=== PATIENT | female | born 1945 | race Caucasian/White ===

== ENCOUNTER → 2023-07-03 07:09 | Outpatient (REF) | payer MEDICARE, OTHER, SELFPAY | LOC: HWRCS 07:09 | PROVIDERS: ATTENDING PHYSICIAN Internal Medicine Cardiovascular Disease; FAMILY PHYSICIAN Internal Medicine | DX: Z01.810 Encounter for preprocedural cardiovascular examination (principal); I70.0 Atherosclerosis of aorta; R07.89 Other chest pain; R06.09 Other forms of dyspnea; R01.1 Cardiac murmur, unspecified | CPT/HCPCS: 78452; 93017; 93306; A9500; J2785 ==

== ENCOUNTER → 2023-08-01 09:11 | Outpatient (REF) | payer MEDICARE, OTHER, SELFPAY | LOC: RAD 09:11 | PROVIDERS: ATTENDING PHYSICIAN Surgery Vascular Surgery; FAMILY PHYSICIAN Family Medicine | DX: I72.4 Aneurysm of artery of lower extremity (principal) | CPT/HCPCS: 93922; 93925 ==

== ENCOUNTER 2023-11-06 07:35 | Inpatient (IN) | payer MEDICARE, OTHER, SELFPAY ==
--- NOTE | 2023-10-03 07:52 | CM ---
Patient is scheduled for an elective L TKR on 11/06/23. Spoke with patient prior to surgery via telephone. Introduced role of Orthopedic Navigator. Patient reports that she lives alone in a one story apartment at [facility]. There are no steps to
enter. She currently functions independently and uses a quad cane. She also has a rolling walker, shower seat and raised toilet seat. She has never had VN services. PCP is Dr. Ana Cristina Chaidez.
Discussed orthopedic program and post surgical plans. Reviewed anticipated length of stay and that goal is for her to return home at discharge. Also reviewed outpatient PT. Patient is in agreement with tentative plan but will need VN services. She
will have support from her son and daughter in law when she goes home.
Patient will complete online education.
Plan: Orthopedic Navigator will remain available to assist with the care of patient and will reassess discharge needs after surgery.
[2023-10-16 08:57] VITALS: BMI 38.6
[2023-10-16 10:14] LABS: Hematocrit 36.4 % (37.0-47.0); Mean Corpuscular Hgb 30.2 pg (27.0-31.0); Mean Corpuscular Volume 91.7 fL (81.0-99.0); Mean Platelet Volume 10.9 fL (7.4-10.4); Platelet Count 175 10^3/uL (130-400); Red Blood Cell Count 3.97 10^6/uL (4.20-5.40); Red Cell Dist. Width 12.4 % (11.5-14.5); White Blood Cell Count 6.5 10^3/uL (4.8-10.8)
[2023-10-16 11:52] LABS: Glycohemoglobin (HgbA1c) 6.8 % (4.0-5.6)
[2023-10-16 12:30] LABS: ALT (SGPT) 13 U/L (0-35); AST (SGOT) 19 U/L (14-36); Albumin 3.9 g/dl (3.5-5.0); Alkaline Phosphatase 52 U/L (38-126); Blood Urea Nitrogen 14 mg/dl (7-17); Calcium 9.4 mg/dl (8.4-10.2); Carbon Dioxide 26 mmol/L (22-30); Chloride 104 mmol/L (98-107); Estimated Creatinine Clearance 103 ml/min; Glucose 141 mg/dl (70-99); Potassium 4.4 mmol/L (3.5-5.1); Sodium 137 mmol/L (135-145); Total Bilirubin 0.7 mg/dl (0.2-1.3); Total Protein 6.3 g/dl (6.3-8.2); eGFR > 60.00
[2023-10-16 15:58] VITALS: BMI 38.6
[2023-11-06] VITALS (21 sets, daily range): BP systolic 97–163; BP diastolic 41–90; PULSE 58; O2SAT 99; BMI 38.6
[2023-11-06] MEDS: CELEBREX 200 MG PO (08:58)
[2023-11-06] MEDS: TYLENOL 650 MG PO ×4 (08:59→23:57)
[2023-11-06] MEDS: NORMOSOL-R 1000 IV ×2 (08:59→15:17)
[2023-11-06 09:15] LABS: Glucose - Point of Care 143 mg/dl (70-99)
[2023-11-06 12:09] LABS: Glucose - Point of Care 136 mg/dl (70-99)
[2023-11-06] MEDS: ROXICODONE 5 MG PO ×2 (14:03→18:27)
--- NOTE | 2023-11-06 15:24 | W.PN.UPDATE ---
Update Note
Progress Note Update
L knee OA s/p L TKA w/ Dr Nevarez 11/06/23
DVT prophylaxis - ASA, b/l venous foot pumps
HTN - + parameters - monitor BP
Abnormal EKG; nuclear stress test 06/2023 stable - monitor on tele
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
LINDA, compliant with dental appliance - monitor O2
- IS
- Can use dental appliance if brought in for admission
Non-insulin dependent diabetes, A1c 6.8 - monitor BS
- Resume Metformin
- +SSI
- Would benefit from Cefadroxil upon d/c
Chemo-induced neuropathy - consider Gabapentin or Lyrica
Dyslipidemia with statin intolerance
Aortic atherosclerosis
Mild mitral regurgitation
Moderate aortic stenosis
Mild to moderate aortic regurgitation
Carotid bruits secondary to radiation of aortic murmur
Colon polyps
Fatty liver disease
Vertigo
Lumbar stenosis
Hypothyroidism
Left breast cancer, remote, status post left radical mastectomy with lymph node dissection, chemotherapy, and radiation
Resultant left upper extremity lymphedema due to previous breast surgery with history of recurrent cellulitis; on Cephalexin as needed
Muscle spasms
Osteopenia.
Obesity, BMI 38.6
Remote history of tobacco abuse
[2023-11-06] MEDS: NOVOLOG FLEXPEN-MODERATE RESISTANCE SC (15:47)
--- NOTE | 2023-11-06 16:25 | PTCARENOTE ---
pt admitted to 2S room 2118 at 1545. pt oriented tor room, call mcqueen, bed controls and plan of care with verbalized understanding. telemetry placed and reading SR/SB in 60's. Left knee w/surgical dressing intact w/ small amount of drainage noted.
+ neurovascular checks, Good sensation, movement and DP pulse noted. foot pumps in use. family at bedside. will observe.
[2023-11-06] MEDS: TYLENOL PO (16:40)
[2023-11-06] MEDS: COZAAR 100 MG PO (16:43)
[2023-11-06] MEDS: GLUCOPHAGE 500 MG PO (16:44)
[2023-11-06] MEDS: SYNTHROID PO (16:44)
[2023-11-06 16:47] LABS: Glucose - Point of Care 210 mg/dl (70-99)
[2023-11-06] MEDS: NOVOLOG FLEXPEN-MODERATE RESISTANCE 3 UNITS SC (16:47)
[2023-11-06] MEDS: ASPIRIN 325 MG PO (18:20)
[2023-11-06] MEDS: ANCEF 5 IV (18:20)
[2023-11-06] MEDS: BACTROBAN 2% OINTMENT 1 APPLIC NASAL (20:06)
[2023-11-06] MEDS: SENOKOT 17.1999999999999993 MG PO (20:07)
[2023-11-06] MEDS: TORADOL 10 MG IV (20:07)
[2023-11-06] MEDS: COLACE 100 MG PO (20:07)
[2023-11-06] MEDS: FLUSH (NSS) 2 FLUSH IV (20:13)
[2023-11-06] MEDS: DILAUDID 0.5 MG IV (20:25)
[2023-11-06 21:30] LABS: Glucose - Point of Care 210 mg/dl (70-99)
[2023-11-07] MEDS: FLUSH (NSS) 2 FLUSH IV (02:56)
[2023-11-07] MEDS: ANCEF 5 IV (02:56)
[2023-11-07 03:25] VITALS: BP 113/56
[2023-11-07] MEDS: TYLENOL PO (05:16)
[2023-11-07] MEDS: SYNTHROID 100 MCG PO (05:51)
[2023-11-07 07:19] LABS: Glucose - Point of Care 206 mg/dl (70-99)
[2023-11-07 07:25] VITALS: BP 136/60
[2023-11-07] MEDS: CELEBREX 200 MG PO (08:28)
[2023-11-07] MEDS: ROXICODONE 5 MG PO (08:28)
[2023-11-07] MEDS: TYLENOL 650 MG PO ×2 (08:29→12:51)
[2023-11-07] MEDS: SENOKOT 17.1999999999999993 MG PO (08:29)
[2023-11-07] MEDS: GLUCOPHAGE 500 MG PO (08:29)
[2023-11-07] MEDS: COZAAR PO (08:29)
[2023-11-07] MEDS: NOVOLOG FLEXPEN-MODERATE RESISTANCE 3 UNITS SC (08:30)
[2023-11-07] MEDS: NOVOLOG FLEXPEN 2 UNITS SC (08:30)
[2023-11-07] MEDS: COLACE 100 MG PO (08:30)
[2023-11-07] MEDS: ASPIRIN 325 MG PO (08:30)
[2023-11-07] MEDS: BACTROBAN 2% OINTMENT 1 APPLIC NASAL (08:34)
--- NOTE | 2023-11-07 09:01 | CM ---
Addendum entered by Alannah Ramsey 11/07/23 12:17:
Patient did well in therapy. She and her son have no concerns about discharge plans.
Original Note:
Reviewed chart and held rounds with PT, OT and nursing. Patient admitted as planned for elective L TKR. Met with patient at bedside. Confirmed information previously obtained for assessment. Also discussed discharge plans. The plan is for patient to
return home at discharge. Her son will be staying with her until 11/16. Reviewed VN services including start of care (tentatively 11/07), services to be ordered (PT, OT, SN, JOURNEYMAN ELECTRICIAN) and frequency/duration of services. Options list provided and PAC data
reviewed. Patient selects VN.
Patient has all needed DME at home.
VN referral was completed and sent to [facility] through [employer] with request for start of care on 11/07. Confirmation received of their ability to accept case. health unit clerk to fax discharge instructions to VN when complete.
Patient will use [facility] pharmacy for discharge prescriptions.
Discharge plans were reviewed with patient's son on 11/06.
[2023-11-07 09:30] VITALS: BP 122/51; PULSE 62; O2SAT 95
[2023-11-07 11:15] VITALS: BP 146/67
[2023-11-07 11:37] LABS: Glucose - Point of Care 209 mg/dl (70-99)
[2023-11-07] MEDS: NOVOLOG FLEXPEN-MODERATE RESISTANCE SC (12:50)
[2023-11-07] MEDS: NOVOLOG FLEXPEN SC (12:50)
--- NOTE | 2023-11-07 13:14 | W.PN.ORTHO ---
Today's Communication / Plan
-
D/c today since clinically stable, did well w/ PT and OT.
Assessment
.
Distal Motor Intact: Yes
Dressing:
Clean, dry and intact.
Assessment:
L knee OA s/p L TKA w/ Dr Nevarez 11/06/23
DVT prophylaxis - ASA, b/l venous foot pumps
HTN - + parameters - BPs stable
Abnormal EKG; nuclear stress test 06/2023 stable - maintaining NSR/asymptomatic sinus rakesh during admission
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
LINDA, compliant with dental appliance - O2 stable on RA
- IS
- Continue dental appliance HS
Non-insulin dependent diabetes, A1c 6.8 - BS readings elevated post-surgery d/t surgical stress, IV steroids, holding of AM diabetic meds DOS
- BS readings expected to improve further, however, w/ resumption of home meds, continuation of diabetic carb controlled diet
- Resumed Metformin
- +SSI during admission
- Would benefit from Cefadroxil upon d/c
Chemo-induced neuropathy - consider Gabapentin or Lyrica
Dyslipidemia with statin intolerance
Aortic atherosclerosis
Mild mitral regurgitation
Moderate aortic stenosis
Mild to moderate aortic regurgitation
Carotid bruits secondary to radiation of aortic murmur
Colon polyps
Fatty liver disease
Vertigo
Lumbar stenosis
Hypothyroidism
Left breast cancer, remote, status post left radical mastectomy with lymph node dissection, chemotherapy, and radiation
Resultant left upper extremity lymphedema due to previous breast surgery with history of recurrent cellulitis; on Cephalexin as needed
Muscle spasms
Osteopenia.
Obesity, BMI 38.6
Remote history of tobacco abuse
Plan
.
Surgery / Date: L TKA w/ Dr Nevarez 11/06/23
DVT Prophylaxis: Aspirin
Activity:
Out of bed.
PT/OT
Discharge Plan: Home w/ VN
Subjective
.
.:
Patient resting comfortably in her chair this AM.
L knee pain well controlled w/ current pain meds.
Dizziness overnight but no further complaints this AM. Feels well.
Eager for potential d/c today.
Vital Signs and Labs
.
Vital Signs and Labs:
Lab Results
10/16/23 08:55
10/16/23 08:55
Temp Pulse Resp BP Pulse Ox
98.2 F 70 18 146/67 94
11/07/23 11:15 11/07/23 11:15 11/07/23 11:15 11/07/23 11:15 11/07/23 11:15
Non-invasive Hgb result: 12.9
Physical Exam
-
HEENT: No pallor, cyanosis, or jaundice. Throat clear.
NECK: Supple. No JVD.
RESPIRATORY: Lungs clear to auscultation.
CVS: S1, S2 normal. RRR.�
ABDOMEN: Soft, non-tender. No distension. Obese.
EXTREMITIES: Mild post-op L knee edema. Strength equal, no calf pain with palpation/dorsiflexion. Calves soft.
WEB SITE ADMINISTRATOR: AOx3. No focal deficits. vacuum drier tender grossly intact
--- NOTE | 2023-11-07 13:30 | W.DS.TRANS ---
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
-
Discharge Instructions:
Discharge Diagnosis/Procedures L knee OA s/p L TKA w/ Dr Nevarez 11/06/23
Diet Diabetic, Carb Controlled
Activity As tolerated,With Walker
Driving Restrictions Not until seen by your Dr
Bathing Restrictions OK to Shower
Other Services PT,VN
Wound Care Dressing to be removed 1 week post-surgery.
Instructions:
Stand-Alone Forms: Total Hip/Knee Replacement D/C
Changes to Home Medications: Yes
Discharge Medications:
DC Medications w/original date entered in [employer]
inulin 2 gram chewable tablet (Fiber Gummies) 4 g PO DAILY Constipation 10/14/23
levothyroxine 100 mcg tablet 100 mcg PO DAILY Thyroid 10/14/23
metformin 500 mg tablet 500 mg PO BID Diabetes 10/14/23
mupirocin 2 % topical ointment 1 applic intranasal BID #1 tube 10/16/23
Saccharomyces boulardii 250 mg capsule (Florastor) 250 mg PO BID #14 caps 11/07/23
acetaminophen 500 mg tablet (Acetaminophen Extra Strength) 1,000 mg (2 x 500 mg) PO Q6H #60 tabs 11/07/23
aspirin 325 mg tablet 325 mg PO DAILY #30 tabs 11/07/23
cefadroxil 500 mg capsule 500 mg PO BID #14 caps 11/07/23
celecoxib 200 mg capsule 200 mg PO DAILY #14 caps 11/07/23
docusate sodium 100 mg capsule 100 mg PO BID #30 caps 11/07/23
losartan 100 mg tablet 100 mg PO DAILY Blood Pressure #1 tab 11/07/23
magnesium hydroxide 400 mg/5 mL oral suspension 30 ml PO HS #355 mL 11/07/23
ondansetron HCl 4 mg tablet 4 mg PO Q6H PRN nausea and vomiting #30 tabs 11/07/23
oxycodone 5 mg tablet 5 - 10 mg (1 - 2 x 5 mg) PO Q4H PRN moderate-severe pain #30 tabs 11/07/23
sennosides 8.6 mg tablet (Senna Laxative) 17.2 mg (2 x 8.6 mg) PO BID #30 tabs 11/07/23
Home Medication Changes
Saccharomyces boulardii 250 mg capsule (Florastor) 250 mg PO BID #14 caps 11/07/23
acetaminophen 500 mg tablet (Acetaminophen Extra Strength) 1,000 mg (2 x 500 mg) PO Q6H #60 tabs 11/07/23
aspirin 325 mg tablet 325 mg PO DAILY #30 tabs 11/07/23
cefadroxil 500 mg capsule 500 mg PO BID #14 caps 11/07/23
celecoxib 200 mg capsule 200 mg PO DAILY #14 caps 11/07/23
docusate sodium 100 mg capsule 100 mg PO BID #30 caps 11/07/23
magnesium hydroxide 400 mg/5 mL oral suspension 30 ml PO HS #355 mL 11/07/23
ondansetron HCl 4 mg tablet 4 mg PO Q6H PRN nausea and vomiting #30 tabs 11/07/23
oxycodone 5 mg tablet 5 - 10 mg (1 - 2 x 5 mg) PO Q4H PRN moderate-severe pain #30 tabs 11/07/23
sennosides 8.6 mg tablet (Senna Laxative) 17.2 mg (2 x 8.6 mg) PO BID #30 tabs 11/07/23
Pending Results: No
[2023-11-07 13:56] VITALS: BP 131/69
== END 2023-11-07 14:11 | disposition home health service (06) | DRG 470 ==
LOC: 2 SOUTH 07:35
PROVIDERS: ADMITTING PHYSICIAN Orthopaedic Surgery; FAMILY PHYSICIAN Internal Medicine
PROC: 0SRD0J9 Replacement of Left Knee Joint with Synthetic Substitute, Cemented, Open Approach (ICD-10-PCS; 2023-11-06)
DX: M17.12 Unilateral primary osteoarthritis, left knee (principal); I10 Essential (primary) hypertension; E78.5 Hyperlipidemia, unspecified; I72.4 Aneurysm of artery of lower extremity; G47.33 Obstructive sleep apnea (adult) (pediatric); E11.9 Type 2 diabetes mellitus without complications; I08.0 Rheumatic disorders of both mitral and aortic valves; E03.9 Hypothyroidism, unspecified; R94.31 Abnormal electrocardiogram [ECG] [EKG]; G62.0 Drug-induced polyneuropathy; I97.2 Postmastectomy lymphedema syndrome; T45.1X5A Adverse effect of antineoplastic and immunosuppressive drugs, initial encounter; E66.01 Morbid (severe) obesity due to excess calories; Z68.38 Body mass index [BMI] 38.0-38.9, adult; Z79.82 Long term (current) use of aspirin; Z79.890 Hormone replacement therapy; Z79.84 Long term (current) use of oral hypoglycemic drugs; Z78.9 Other specified health status; Z85.3 Personal history of malignant neoplasm of breast; Z87.891 Personal history of nicotine dependence; Z91.81 History of falling; Y83.8 Other surgical procedures as the cause of abnormal reaction of the patient, or of later complication, without mention of misadventure at the time of the procedure
CPT/HCPCS: 36415; 73560; 80053; 82962; 83036; 85027; 87070; 97110; 97116; 97162; 97167; 97530; C1713; C1776

== ENCOUNTER → 2024-02-10 08:39 | Outpatient (REF) | payer MEDICARE, OTHER, SELFPAY | LOC: RAD 08:39 | PROVIDERS: ATTENDING PHYSICIAN Registered Nurse; FAMILY PHYSICIAN Internal Medicine | DX: I72.4 Aneurysm of artery of lower extremity (principal) | CPT/HCPCS: 93922; 93925 ==

== ENCOUNTER → 2024-08-20 10:43 | Outpatient (REF) | payer MEDICARE, OTHER, SELFPAY | LOC: RAD 10:43 | PROVIDERS: ATTENDING PHYSICIAN Surgery Vascular Surgery; FAMILY PHYSICIAN Internal Medicine | DX: I72.4 Aneurysm of artery of lower extremity (principal) | CPT/HCPCS: 93922; 93925 ==

== ENCOUNTER → 2024-09-08 09:11 | Outpatient (REF) | payer MEDICARE, OTHER, SELFPAY ==
[2024-09-08 10:27] LABS: NT-proBNP 438 pg/ml
[2024-09-08 10:46] LABS: Blood Urea Nitrogen 17 mg/dl (7-17); Calcium 9.7 mg/dl (8.4-10.2); Carbon Dioxide 29 mmol/L (22-30); Chloride 102 mmol/L (98-107); Glucose 134 mg/dl (70-99); Potassium 4.4 mmol/L (3.5-5.1); Sodium 138 mmol/L (135-145); eGFR > 60.00
== END ==
LOC: RAD 09:11
PROVIDERS: ATTENDING PHYSICIAN Internal Medicine Cardiovascular Disease; FAMILY PHYSICIAN Internal Medicine
DX: R60.0 Localized edema (principal); I10 Essential (primary) hypertension
CPT/HCPCS: 36415; 80048; 83735; 83880; 93970

== ENCOUNTER → 2024-11-24 13:53 | Outpatient (REF) | payer MEDICARE, OTHER, SELFPAY | LOC: HWRAD 13:53 | PROVIDERS: ATTENDING PHYSICIAN Internal Medicine | DX: M54.50 Low back pain, unspecified (principal) | CPT/HCPCS: 72131 ==